=== PATIENT | male | born 1965 | race Caucasian/White ===

== ENCOUNTER 2022-02-20 11:08 | Emergency (ER) | payer BC ==
[2022-02-20 11:29] VITALS: RESP 16; TEMP 97.6
[2022-02-20] MEDS ORDERED: METOCLOPRAMIDE 5 MG/ML 2 ML VIAL IVP STA (11:29)
[2022-02-20] MEDS ORDERED: KETOROLAC 15 MG/ML 1 ML VIAL IVP STA ×2 (11:29→14:11)
[2022-02-20] MEDS ORDERED: LORazepam 2 MG/ML INJ IV STA (11:30)
[2022-02-20] MEDS ORDERED: SODIUM CHLORIDE 0.9% 1,000 ML IV STA (11:36)
--- NOTE | 2022-02-20 11:40 | ED ---
Fall HPI - General Chief Complaint: Fall Stated Complaint: seizure Time Seen by Provider: 02/20/22 11:09 Source: patient, family, EMS Mode of arrival: EMS - History of Present Illness Initial Comments: This is a 56-year-old male who presents to the emergency department for a seizu re. He has a known history of seizures, and his most recent seizure was in June 2021. Patient states that he felt strange last night and and had saliva pooling in his mouth. His states that he almost only has seizures at night. Patient states that he did not awake with body aches, and does not believe he had a seizure last night. His son did witness tonic-clonic movement this morning, believes that this lasted for approximately 40 seconds. He did hit his head. His son states that he is not sure if the fall caused a seizure or the seizure caused the fall. Patient is actively vomiting in the examination room after receiving 4 mg of Zofran from EMS. Denies any chest pain or sh ortness of breath. His neurologist is unwilling to see him because he is not vaccinated against COVID-19. He is in the process of trying to find a new neurologist. Because his neurologist will not see him, they have been trying to wean him off the Keppra. They decreased the dosage from 500 mg to 250 mg over the last week, which is believes is what triggered the seizure. She states that they are going to increase it back to 500 mg and are hoping that their primary care provider will take over this prescription until they can find a new neurologist. Denies any fevers, chills, sore throat, cough, dyspnea, chest pain, palpitations, abdominal pain, nausea, vomiting, diarrhea, or back pain. MD Complaint: fall Location: head - Related Data Home Medications Medication Instructions Recorded Confirmed amLODIPine [Norvasc] 10 mg PO DAILY 02/20/22 02/20/22 levETIRAcetam [Keppra] 500 mg PO HS 02/20/22 02/20/22 Previous Rx's Medication Instructions Recorded Ondansetron Odt [Zofran Odt] 4 mg PO Q8HR PRN #15 tab 02/20/22 levETIRAcetam [Keppra] 500 mg PO HS #30 tab 02/20/22 Allergies Allergy/AdvReac Type Severity Reaction Status Date / Time No Known Allergies Allergy Verified 02/20/22 13:01 Review of Systems ROS Statement: Those systems with pertinent positive or pertinent negative responses have been documented in the HPI. ROS Other: All systems not noted in ROS Statement are negative. Past Medical History Additional Past Medical History / Comment(s): MGUS, hypertrophic cardiomyopathy History of Any Multi-Drug Resistant Organisms: None Reported Past Psychological History: No Psychological Hx Reported Past Alcohol Use History: None Reported Past Drug Use History: None Reported General Exam Limitations: no limitations General appearance: alert, in distress Respiratory exam: Present: normal lung sounds bilaterally. Absent: respiratory distress, wheezes, rales, rhonchi, stridor Cardiovascular Exam: Present: regular rate, normal rhythm, normal heart sounds. Absent: systolic murmur, diastolic murmur, rubs, gallop, clicks Neurological exam: Present: alert, oriented X3, CN II-XII intact Psychiatric exam: Present: normal affect, normal mood Skin exam: Present: other (3 cm jagged laceration to the left side of the occipital scalp.) Course Vital Signs 02/20/22 02/20/22 02/20/22 11:15 12:50 14:38 Temperature 97.6 F Pulse Rate 90 71 78 Respiratory 16 16 16 Rate Blood Pressure 100/66 120/83 124/78 O2 Sat by Pulse 92 L 98 99 Oximetry Procedures - Laceration Laceration #1 Consent Obtained: verbal consent Indication: laceration Site: scalp Size (cm): 3 Description: irregular Depth: simple, single layer Type of Sutures: other (linda) Number of Sutures: 3 Medical Decision Making - Medical Decision Making This is a 56-year-old male who presents to the emergency department for a seizure. Lab work was nonactionable. Computed tomography scan of the brain and c-spine revealed no acute irregularities. The laceration to the scalp was closed with 3 linda. Advised the family that he will need to return in 10-14 days to have the linda removed. He was given a loading dose of Keppra 500 mg, Toradol, Ativan, and Zofran. Patient states that he is feeling better and feels stable for discharge home. Refill on the Keppra 500 mg provided. Advised they increased the dose back to the 500 mg. They will continue to try and find a new neurologist and see if his primary care provider can prescribe the Keppra for the meantime. Prescription for Zofran sent to the pharmacy. Advised [id number] Tylenol and ibuprofen as needed for pain. Pt unable to provide urine sample prior to discharge. Return precautions reviewed in depth, the patient is instructed to return to the emergency department with any new, worsening, or concerning symptoms. Patient verbalized understanding. This case was discussed in detail with the attending ED physician. Presentation, findings, and treatment plan discussed in detail as well. - Lab Data Result diagrams: 02/20/22 11:48 02/20/22 11:48 Lab Results 02/20/22 02/20/22 Range/Units 11:48 11:48 WBC 9.2 (3.8-10.6) k/uL RBC 5.36 (4.30-5.90) m/uL Hgb 16.3 (13.0-17.5) gm/dL Hct 49.7 (39.0-53.0) % MCV 92.8 (80.0-100.0) fL MCH 30.5 (25.0-35.0) pg MCHC 32.8 (31.0-37.0) g/dL RDW 12.7 (11.5-15.5) % Plt Count 183 (150-450) k/uL MPV 8.7 Neutrophils % 80 % Lymphocytes % 14 % Monocytes % 4 % Eosinophils % 0 % Basophils % 0 % Neutrophils # 7.4 (1.3-7.7) k/uL Lymphocytes # 1.3 (1.0-4.8) k/uL Monocytes # 0.4 (0-1.0) k/uL Eosinophils # 0.0 (0-0.7) k/uL Basophils # 0.0 (0-0.2) k/uL Sodium 138 (137-145) mmol/L Potassium 3.5 (3.5-5.1) mmol/L Chloride 104 (98-107) mmol/L Carbon Dioxide 18 L (22-30) mmol/L Anion Gap 16 mmol/L BUN 14 (9-20) mg/dL Creatinine 1.20 (0.66-1.25) mg/dL Est GFR (CKD-EPI)AfAm 79 (>60 ml/min/1.73 sqM) Est GFR (CKD-EPI)NonAf 68 (>60 ml/min/1.73 sqM) Glucose 182 H (74-99) mg/dL Calcium 9.4 (8.4-10.2) mg/dL Total Bilirubin 0.5 (0.2-1.3) mg/dL AST 33 (17-59) U/L ALT 29 (4-49) U/L Alkaline Phosphatase 118 (38-126) U/L Creatine Kinase 91 (55-170) U/L Total Protein 8.6 H (6.3-8.2) g/dL Albumin 4.5 (3.5-5.0) g/dL TSH 0.994 (0.465-4.680) mIU/L Serum Alcohol <10 mg/dL - EKG Data EKG Comments: Sinus rhythm. Ventricular rate 73 BPM, MT interval 204 ms, QRS duration 125 ms, QTc 436 ms. - Radiology Data Radiology results: report reviewed, image reviewed Disposition Clinical Impression: Generalized tonic-clonic seizure, Fall Disposition: HOME SELF-CARE Instructions (If sedation given, give patient instructions): Seizure/Epilepsy Discharge Instructions & Follow-Up, [facility] (ED) Additional Instructions: Return to the emergency department with any new, worsening, or concerning sympto ms. The linda will need to be removed in 10-14 days, this can be done at this emergency department, another emergency department, or primary care office. Increase dosage of Keppra back to 500 mg. Take Zofran as needed every 8 hours for nausea and vomiting. Prescriptions: levETIRAcetam [Keppra] 500 mg PO HS #30 tab Ondansetron Odt [Zofran Odt] 4 mg PO Q8HR PRN #15 tab PRN Reason: Nausea And Vomiting Is patient prescribed a controlled substance at d/c from ED?: No Referrals: Nonstaff,Physician [Primary Care Provider] - 1-2 days
[2022-02-20 12:19] LABS: Basophils % (A) 0 %; Eosinophils % (A) 0 %; HCT 49.7 % (39.0-53.0); HGB 16.3 gm/dL (13.0-17.5); Lymphocytes # (A) 1.3 k/uL (1.0-4.8); Lymphocytes % (A) 14 %; MCH 30.5 pg (25.0-35.0); MCHC 32.8 g/dL (31.0-37.0); MCV 92.8 fL (80.0-100.0); Mean Platelet Volume 8.7; Monocytes # (A) 0.4 k/uL (0-1.0); Monocytes % (A) 4 %; Neutrophils # (A) 7.4 k/uL (1.3-7.7); Neutrophils % (A) 80 %; Platelet Count 183 k/uL (150-450); RBC 5.36 m/uL (4.30-5.90); RDW 12.7 % (11.5-15.5); WBC 9.2 k/uL (3.8-10.6)
--- NOTE | 2022-02-20 12:25 | CT ---
EXAMINATION TYPE: CT brain cspine wo con CT DLP: 1465.2 mGycm, Automated exposure control for dose reduction was used. DATE OF EXAM: 02/20/2022 12:02 PM COMPARISON: None.. CLINICAL INDICATION:Male, 56 years old with history of Hit head during seizure; Head injury during se izure. TECHNIQUE: Brain: Multiple axial CT images of the brain were obtained without IV contrast. Cspine: Axial CT images from the skull base to the inferior aspect of T2 we obtained without intraven ous contrast. Coronal and sagittal reformatted images were also reviewed. FINDINGS: Brain: Extra-axial spaces: No abnormal extra-axial fluid collections. Ventricular system: Within normal limits Cerebral parenchyma: No acute intraparenchymal hemorrhage or mass effect. The suarez-white junction is well differentiated. Cerebellum: Unremarkable. Mass effect: No evidence of midline shift. Intracranial vasculature: unremarkable Soft tissues: Normal. Calvarium/osseous structures: No depressed skull fracture. Paranasal sinuses and mastoid air cells: Mild mucosal thickening with air-fluid level in the right ma xillary sinus. The mastoid air cells are clear. Visualized orbits: Orbital contents are intact. Cervical spine: Fracture: None. Osseous structures: Unremarkable Vertebral alignment: No spondylolisthesis. Straightening of the cervical spine which may be due to pa tient position versus muscle spasm. Spinal canal/Neural Foramina: No evidence of significant spinal canal narrowing. No evidence for sign ificant neural foraminal stenosis. Neck soft tissues: Prevertebral soft tissues are within normal limits. Other: The airway is patent. Left apical scarring and/or atelectasis. IMPRESSION: No acute intracranial process. No evidence of cervical spine fracture.
[2022-02-20 12:36] LABS: ALT 29 U/L (4-49); AST 33 U/L (17-59); African American GFR (CKD) 79 (>60 ml/min/1.73 sqM); Albumin 4.5 g/dL (3.5-5.0); Alcohol <10 mg/dL; Alkaline Phosphatase 118 U/L (38-126); Anion Gap 16 mmol/L; Blood Urea Nitrogen 14 mg/dL (9-20); Calcium 9.4 mg/dL (8.4-10.2); Carbon Dioxide 18 mmol/L (22-30); Chloride 104 mmol/L (98-107); Creatine Kinase 91 U/L (55-170); Glucose 182 mg/dL (74-99); Non-African American GFR(CKD) 68 (>60 ml/min/1.73 sqM); Potassium 3.5 mmol/L (3.5-5.1); Sodium 138 mmol/L (137-145); Total Bilirubin 0.5 mg/dL (0.2-1.3); Total Protein 8.6 g/dL (6.3-8.2)
[2022-02-20] MEDS ORDERED: levETIRAcetam IV 500 MG in SODIUM CHLORIDE 0.9% 100 ML IVPB STA (13:26)
[2022-02-20] MEDS ORDERED: ONDANSETRON 4 MG ODT STARTER PACK 2 TAB BTL PO STA (14:17)
[2022-02-20 14:39] VITALS: BP 124/78; PULSE 78
== END 2022-02-20 14:40 | disposition home or self-care (01) ==
LOC: EC 11:08
DX: S01.00XA Unspecified open wound of scalp, initial encounter (principal); G40.409 Other generalized epilepsy and epileptic syndromes, not intractable, without status epilepticus; W19.XXXA Unspecified fall, initial encounter
CPT/HCPCS: 36415; 93005; 80053; 84443; 82550; 85025; 80320; 72125; 70450; 99285; 96365; 96375 ×3; 96376; 96361; 12002; J2060; J2765; J1953; J1885; S0119